=== PATIENT | female | born 1970 | race Caucasian/White ===

== ENCOUNTER 2017-02-22 11:35 | Emergency (ER) | payer BC ==
[2017-02-22] MEDS ORDERED: Ketorolac 30 MG/ML SDV IVPUSH ONE (11:44)
[2017-02-22] MEDS ORDERED: Ondansetron 4 MG/2 ML SDV IV ONE (11:44)
[2017-02-22] MEDS ORDERED: Sodium Chloride 0.9% 1,000 ML IV ONE (11:44)
[2017-02-22 11:50] VITALS: BP 131/84
--- NOTE | 2017-02-22 11:50 | EDM.PDOC ---
ED HPI GENERAL MEDICAL PROBLEM - General Stated Complaint: [id number] MIGRAINE Time Seen by Provider: 02/22/17 11:40 Source of Information: Reports: Patient History Limitations: Reports: No Limitations - History of Present Illness INITIAL COMMENTS - FREE TEXT/NARRATIVE: This 46 yo female patient reports to the ED with a migraine headache. The patient reports her pain is in the front of her head and feels like "someone is sticking their hands in behind my eyes." The patient reports she normally takes Topamax daily and has also taken Maxalt with no changes to her symptoms. The patient reports she is also feeling a little nauseated today. The patient reports she does have a history of migraine headaches, but she normally "just suffers them out." Onset: Today Duration: Constant, Getting Worse Location: Reports: Head (frontal) Quality: Reports: Ache, Sharp, Throbbing Severity: Severe Improves with: Reports: None Worsens with: Reports: None Associated Symptoms: Reports: Headaches Treatments MAP MAKER: Reports: Other Medication(s) Right Head Pain Score (Numeric/FACES): 3 - Related Data Allergies Allergy/AdvReac Type Severity Reaction Status Date / Time ear medication Allergy Swelling Uncoded 08/18/16 14:04 Home Meds: Home Meds Cholecalciferol (Vitamin D3) [Vitamin D3] 400 units PO DAILY 08/18/16 [History] Cyanocobalamin (Vitamin B-12) [Vitamin B12] 2,500 mcg PO DAILY 08/18/16 [History ] Fish Oil/Cornelia-3 Fatty Acids [Fish Oil 1,000 MG] 1 cap PO DAILY 08/18/16 [ History] Lydia Root 550 mg PO DAILY 08/18/16 [History] Levothyroxine Sodium [Synthroid] 137 mcg PO DAILY 08/18/16 [History] Magnesium 250 mg PO DAILY 08/18/16 [History] Ranitidine [Zantac] 150 mg PO BEDTIME 08/18/16 [History] Rizatriptan Benzoate [Rizatriptan] 5 mg PO ASDIRECTED PRN 08/18/16 [History] Topiramate [Topamax] 100 mg PO DAILY 08/18/16 [History] Venlafaxine HCl [Venlafaxine ER] 150 mg PO ASDIRECTED PRN 08/18/16 [History] Past Medical History HEENT History: Reports: Impaired Vision Other HEENT History: wears glasses Cardiovascular History: Reports: None Respiratory History: Reports: None Gastrointestinal History: Reports: GERD Genitourinary History: Reports: None 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: Reports: None Musculoskeletal History: Reports: None Neurological History: Reports: Migraines, Other (See Below) Other Neuro History: false brain tumor Psychiatric History: Reports: None Endocrine/Metabolic History: Reports: Obesity/BMI 30+ Hematologic History: Reports: None Immunologic History: Reports: None Oncologic (Cancer) History: Reports: None Dermatologic History: Reports: None - Infectious Disease History Infectious Disease History: Reports: Chicken Pox - Past Surgical History Head Surgeries/Procedures: Reports: None GI Surgical History: Reports: Cholecystectomy Social & Family History - Family History Family Medical History: Noncontributory - Tobacco Use Smoking Status *Q: Current Every Day Smoker Years of Tobacco use: 33 Packs/Tins Daily: 1 Second Hand Smoke Exposure: No - Caffeine Use Caffeine Use: Reports: Coffee, Soda - Recreational Drug Use Recreational Drug Use: No - Living Situation & Occupation Living situation: Reports: , with Family Occupation: Employed ED ROS GENERAL - Review of Systems Review Of Systems: ROS reveals no pertinent complaints other than HPI. - Physical Exam Exam: See Below Exam Limited By: No Limitations General Appearance: Alert, WD/WN, Moderate Distress, Obese Eye Exam: Bilateral Eye: EOMI, Normal Inspection, PERRL Ears: Normal External Exam, Normal Canal, Hearing Grossly Normal, Normal TMs Nose: Normal Inspection, Normal Mucosa, No Blood Throat/Mouth: Normal Inspection, Normal Lips, Normal Teeth, Normal Gums, Normal Oropharynx, Normal Voice, No Airway Compromise Head Exam: Atraumatic, Normocephalic Neck: Normal Inspection, Supple, Non-Tender, Full Range of Motion Respiratory/Chest: No Respiratory Distress, Lungs Clear, Normal Breath Sounds, No Accessory Muscle Use, Chest Non-Tender Cardiovascular: Normal Peripheral Pulses, Regular Rate, Rhythm, No Edema, No Gallop, No JVD, No Murmur, No Rub GI/Abdominal: Normal Bowel Sounds, Soft, Non-Tender, No Organomegaly, No Distention, No Abnormal Bruit, No Mass, Other (obese) (Female) Exam: Deferred Rectal (Female) Exam: Deferred Neuro Exam (Abbreviated): Alert, Oriented, CN II-XII Intact, Normal Cognition, Normal Gait, No Motor/Sensory Deficits Back Exam: Normal Inspection, Full Range of Motion, NT Extremities: Normal Inspection, Normal Range of Motion, Non-Tender, No Pedal Edema, Normal Capillary Refill Psychiatric: Normal Affect, Depressed Mood Skin Exam: Warm, Dry, Intact, Normal Color, No Rash Course - Vital Signs Last Recorded V/S: Last Vital Signs Temp 36.1 C 02/22/17 11:49 Pulse 88 02/22/17 11:49 Resp 18 02/22/17 11:49 BP 131/84 02/22/17 11:49 Pulse Ox 98 02/22/17 11:49 - Orders/Labs/Meds Meds: Medications Discontinued Medications Generic Name Dose Route Start Last Admin Trade Name Freq PRN Reason Stop Dose Admin Sodium Chloride 1,000 mls @ 999 mls/hr 02/22/17 11:44 02/22/17 12:15 Normal Saline IV 02/22/17 12:44 999 mls/hr .BOLUS ONE Administration Ketorolac Tromethamine 30 mg 02/22/17 11:44 02/22/17 12:14 Toradol IVPUSH 02/22/17 11:45 30 mg ONETIME ONE Administration Ondansetron HCl 4 mg 02/22/17 11:44 02/22/17 12:14 Zofran IV 02/22/17 11:45 4 mg ONETIME ONE Administration Departure - Departure Time of Disposition: 13:19 Disposition: Home, Self-Care 01 Condition: Good Clinical Impression: Migraine - Discharge Information Instructions: Recurrent Migraine Headache, Tegn-[id number] Care Plan Goals: The patient was advised of the examination results during the visit. The patient was given a liter of IV fluid, IV Zofran and IV Toradol while in the ED. The patient was encouraged to keep her neurologist informed of her migraine as well as her treatment. If the patient has any additional symptoms or concerns , the patient should follow-up with her primary care facility or return to the emergency department.
== END 2017-02-22 13:26 | disposition home or self-care (01) ==
LOC: DL.ED 11:35
DX: G43.909 Migraine, unspecified, not intractable, without status migrainosus (principal); H54.7 Unspecified visual loss; K21.9 Gastro-esophageal reflux disease without esophagitis; E66.9 Obesity, unspecified; Z90.49 Acquired absence of other specified parts of digestive tract; F17.210 Nicotine dependence, cigarettes, uncomplicated; Z88.8 Allergy status to other drugs, medicaments and biological substances; Z79.899 Other long term (current) drug therapy
CPT/HCPCS: 96361; 96374; 96375; 99283; J1885; J2405; J7030

== ENCOUNTER 2017-04-13 15:09 | Emergency (ER) | payer BC ==
[2017-04-13 15:19] VITALS: BP 138/86
[2017-04-13] MEDS ORDERED: Ondansetron 4 MG/2 ML SDV IV ONE (15:32)
[2017-04-13] MEDS ORDERED: Ketorolac 30 MG/ML SDV IM ONE (15:32)
--- NOTE | 2017-04-13 15:36 | EDM.PDOC ---
ED HPI GENERAL MEDICAL PROBLEM - General Chief Complaint: Headache Stated Complaint: MIGRAINE, [id number] Time Seen by Provider: 04/13/17 15:30 Source of Information: Reports: Patient History Limitations: Reports: No Limitations - History of Present Illness INITIAL COMMENTS - FREE TEXT/NARRATIVE: 46 yo white female c/o headache since Monday AM. Pt. seen by her Neurologist on Monday and given prednisone. Pt. also takes Topamax BID. Pt. PMHx. Migranie Headaches and Pseudo Tumor Cerebri Onset Date: 04/11/17 Onset Time: 12:00 Duration: Day(s): Location: Reports: Head Quality: Reports: Ache Improves with: Reports: None Worsens with: Reports: None Associated Symptoms: Reports: No Other Symptoms Headache Pain Score (Numeric/FACES): 8 - Related Data Allergies Allergy/AdvReac Type Severity Reaction Status Date / Time ear medication Allergy Swelling Uncoded 04/13/17 15:14 Home Meds: Home Meds Cyanocobalamin (Vitamin B-12) [Vitamin B12] 2,500 mcg PO DAILY 08/18/16 [History ] Levothyroxine Sodium [Synthroid] 137 mcg PO DAILY 08/18/16 [History] Ranitidine [Zantac] 150 mg PO BEDTIME 08/18/16 [History] Rizatriptan Benzoate [Rizatriptan] 5 mg PO ASDIRECTED PRN 08/18/16 [History] Topiramate [Topamax] 100 mg PO DAILY 08/18/16 [History] Venlafaxine HCl [Venlafaxine ER] 150 mg PO ASDIRECTED PRN 08/18/16 [History] predniSONE [Prednisone] 10 mg PO DAILY 04/13/17 [History] Past Medical History HEENT History: Reports: Impaired Vision Other HEENT History: wears glasses Cardiovascular History: Reports: None Respiratory History: Reports: None Gastrointestinal History: Reports: GERD Genitourinary History: Reports: None 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: 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: None Musculoskeletal History: Reports: None Neurological History: Reports: Migraines, Other (See Below) Other Neuro History: false brain tumor Psychiatric History: Reports: None Endocrine/Metabolic History: Reports: Obesity/BMI 30+ Hematologic History: Reports: None Immunologic History: Reports: None Oncologic (Cancer) History: Reports: None Dermatologic History: Reports: None - Infectious Disease History Infectious Disease History: Reports: Chicken Pox - Past Surgical History Head Surgeries/Procedures: Reports: None GI Surgical History: Reports: Cholecystectomy Social & Family History - Family History Family Medical History: Noncontributory - Tobacco Use Smoking Status *Q: Current Every Day Smoker Years of Tobacco use: 35 Packs/Tins Daily: 1 Used Tobacco, but Quit: No Second Hand Smoke Exposure: No - Caffeine Use Caffeine Use: Reports: Coffee, Soda Other Caffeine Use: 2 cups of coffee in morning, 2 diet dew throughout the day - Recreational Drug Use Recreational Drug Use: No - Living Situation & Occupation Living situation: Reports: , with Family Occupation: Employed ED ROS GENERAL - Review of Systems Review Of Systems: See Below Constitutional: Reports: No Symptoms HEENT: Reports: No Symptoms Respiratory: Reports: No Symptoms Cardiovascular: Reports: No Symptoms Endocrine: Reports: No Symptoms GI/Abdominal: Reports: No Symptoms : Reports: No Symptoms Musculoskeletal: Reports: No Symptoms Skin: Reports: No Symptoms Neurological: Reports: Headache Psychiatric: Reports: No Symptoms Hematologic/Lymphatic: Reports: No Symptoms Immunologic: Reports: No Symptoms - Physical Exam Exam: See Below Exam Limited By: No Limitations General Appearance: Alert, No Apparent Distress, Obese Eye Exam: Bilateral Eye: EOMI, PERRL Ears: Normal External Exam Nose: Normal Inspection Throat/Mouth: Normal Inspection Head Exam: Atraumatic Neck: Normal Inspection Respiratory/Chest: No Respiratory Distress Cardiovascular: Normal Peripheral Pulses, Regular Rate, Rhythm GI/Abdominal: Normal Bowel Sounds, Soft Neuro Exam (Abbreviated): Alert, Oriented, CN II-XII Intact, Normal Cognition DTR: 2+: Bicep (R), Bicep (L) Back Exam: Normal Inspection Extremities: Normal Inspection Psychiatric: Normal Affect, Normal Mood Skin Exam: Warm, Dry, Intact Course - Vital Signs Last Recorded V/S: Last Vital Signs Temp 36.4 C 04/13/17 15:17 Pulse 80 04/13/17 15:17 Resp 18 04/13/17 15:17 BP 138/86 04/13/17 15:17 Pulse Ox 96 04/13/17 15:17 - Orders/Labs/Meds Meds: Medications Discontinued Medications Generic Name Dose Route Start Last Admin Trade Name Freq PRN Reason Stop Dose Admin Ketorolac Tromethamine 60 mg 04/13/17 15:32 04/13/17 15:39 Toradol IM 04/13/17 15:33 60 mg ONETIME ONE Administration Ondansetron HCl 4 mg 04/13/17 15:32 04/13/17 15:39 Zofran IV 04/13/17 15:33 4 mg ONETIME ONE Administration Departure - Departure Time of Disposition: 15:51 Disposition: Home, Self-Care 01 Condition: Fair Clinical Impression: Headache Qualifiers: Headache type: other headache syndrome Qualified Code(s): G44.89 - Other headache syndrome - Discharge Information Instructions: Recurrent Migraine Headache, [id number] Forms: ED Department Discharge Additional Instructions: Rest Stop All Cigarette smoking TAke your prescribed medications as directed only F/U w/ your Neurologist for further evaluation and treatment
== END 2017-04-13 15:56 | disposition home or self-care (01) ==
LOC: DL.ED 15:09
DX: G44.89 Other headache syndrome (principal); K21.9 Gastro-esophageal reflux disease without esophagitis; E66.9 Obesity, unspecified; F17.210 Nicotine dependence, cigarettes, uncomplicated; Z79.899 Other long term (current) drug therapy; Z90.49 Acquired absence of other specified parts of digestive tract; Z68.42 Body mass index [BMI] 45.0-49.9, adult
CPT/HCPCS: 96372; 99283; J1885; J2405

== ENCOUNTER 2017-11-28 10:50 | Emergency (ER) | payer SELFPAY ==
[2017-11-28] MEDS ORDERED: Sodium Chloride 0.9% 10 ML Syringe FLUSH PRN (11:10)
[2017-11-28] MEDS ORDERED: Sodium Chloride 0.9% 1,000 ML IV ONE (11:10)
--- NOTE | 2017-11-28 11:16 | EDM.PDOC ---
ED HPI GENERAL MEDICAL PROBLEM - General Chief Complaint: Abdominal Pain Stated Complaint: SENT FROM DR PEPPER Time Seen by Provider: 11/28/17 11:08 Source of Information: Reports: Patient, Provider (Dr. Pepper), RN, RN Notes Reviewed History Limitations: Reports: No Limitations - History of Present Illness INITIAL COMMENTS - FREE TEXT/NARRATIVE: Pt presents to the ER from [facility], Dr. Pepper, with c/o RLQ pain. Patient states this pain began about 2200 last evening. She states she has had some nausea but no vomiting. Denies fever or chills, diarrhea, chest pains, or SOB. Patient states if she lies still, the pain is about 3/10, but with movement or palpation to the abdomen the pain is 10/10. Patient states she has had her gallbladder removed but still has her appendix. Patient states she has hx of migraines and hypothyroidism. Pt is also more comfortable with her right leg bent up toward the abdomen. Onset: Sudden Onset Date: 11/27/17 Onset Time: 22:00 Duration: Intermittent Location: Reports: Abdomen Quality: Reports: Stabbing Severity: Moderate Improves with: Reports: None Worsens with: Reports: None Associated Symptoms: Reports: Nausea/Vomiting Right Lower Abdominal Pain Score (Numeric/FACES): 4 - Related Data Allergies Allergy/AdvReac Type Severity Reaction Status Date / Time ear medication Allergy Swelling Uncoded 11/28/17 11:23 Home Meds: Home Meds Cyanocobalamin (Vitamin B-12) [Vitamin B12] 2,500 mcg PO DAILY 08/18/16 [History ] Levothyroxine Sodium [Synthroid] 137 mcg PO DAILY 08/18/16 [History] Ranitidine [Zantac] 150 mg PO BEDTIME 08/18/16 [History] Rizatriptan Benzoate [Rizatriptan] 5 mg PO ASDIRECTED PRN 08/18/16 [History] Topiramate [Topamax] 100 mg PO DAILY 08/18/16 [History] Venlafaxine HCl [Venlafaxine ER] 150 mg PO ASDIRECTED PRN 08/18/16 [History] predniSONE [Prednisone] 10 mg PO DAILY 04/13/17 [History] Past Medical History HEENT History: Reports: Impaired Vision Other HEENT History: wears glasses Cardiovascular History: Reports: None Respiratory History: Reports: None Gastrointestinal History: Reports: GERD Genitourinary History: Reports: None 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: None Musculoskeletal History: Reports: None Neurological History: Reports: Migraines, Other (See Below) Other Neuro History: false brain tumor Psychiatric History: Reports: None Endocrine/Metabolic History: Reports: Obesity/BMI 30+ Hematologic History: Reports: None Immunologic History: Reports: None Oncologic (Cancer) History: Reports: None Dermatologic History: Reports: None - Infectious Disease History Infectious Disease History: Reports: Chicken Pox - Past Surgical History Head Surgeries/Procedures: Reports: None GI Surgical History: Reports: Cholecystectomy Social & Family History - Family History Family Medical History: Noncontributory - Caffeine Use Caffeine Use: Reports: Coffee, Soda Other Caffeine Use: 2 cups of coffee in morning, 2 diet dew throughout the day - Living Situation & Occupation Living situation: Reports: , with Family Occupation: Employed ED ROS GENERAL - Review of Systems Review Of Systems: ROS reveals no pertinent complaints other than HPI. ED EXAM, GI/ABD - Physical Exam Exam: See Below Exam Limited By: No Limitations General Appearance: Alert, WD/WN, Mild Distress Eyes: Bilateral: Normal Appearance, EOMI Ears: Normal External Exam, Hearing Grossly Normal Nose: Normal Inspection Throat/Mouth: Normal Inspection, Normal Voice, No Airway Compromise Head: Atraumatic, Normocephalic Neck: Normal Inspection, Supple, Non-Tender, Full Range of Motion Respiratory/Chest: No Respiratory Distress, Lungs Clear, Normal Breath Sounds, No Accessory Muscle Use, Chest Non-Tender Cardiovascular: Normal Peripheral Pulses, Regular Rate, Rhythm, No Edema, No Gallop, No JVD, No Murmur, No Rub GI/Abdominal Exam: Normal Bowel Sounds, Soft, Guarding, Tender (RUQ, RLQ) (Female) Exam: Deferred Rectal (Female) Exam: Deferred Back Exam: Normal Inspection, Full Range of Motion Extremities: Normal Inspection, Normal Range of Motion, Non-Tender, Normal Capillary Refill, No Pedal Edema Neurological: Alert, Oriented, CN II-XII Intact, Normal Cognition, Normal Gait, Normal Reflexes, No Motor/Sensory Deficits Psychiatric: Normal Affect, Normal Mood Skin Exam: Warm, Dry, Intact, Normal Color, No Rash Lymphatic: No Adenopathy Course - Vital Signs Last Recorded V/S: Last Vital Signs Temp 98.5 F 11/28/17 11:06 Pulse 81 11/28/17 11:06 Resp 16 11/28/17 11:06 BP 140/79 11/28/17 11:06 Pulse Ox 97 11/28/17 11:06 - Orders/Labs/Meds Orders: Active Orders 24 hr Category Date Time Status Peripheral IV Care [RC] . DIRECTED Care 11/28/17 11:10 Active DRUG SCREEN URINE BIORAD [URCHEM] Stat Lab 11/28/17 11:34 Ordered HCG QUALITATIVE,URINE [URCHEM] Stat Lab 11/28/17 11:34 Ordered UA W/MICROSCOPIC [URIN] Stat Lab 11/28/17 11:34 Ordered Sodium Chloride 0.9% [Saline Flush] Med 11/28/17 11:10 Active 10 ml FLUSH ASDIRECTED PRN Peripheral IV Insertion Adult [OM.PC] Stat Oth 11/28/17 11:10 Ordered Medication Orders Sodium Chloride (Saline Flush) 10 ml FLUSH ASDIRECTED PRN PRN Reason: Keep Vein Open Last Admin: 11/28/17 11:58 Dose: 10 ml Labs: Laboratory Tests 11/28/17 11/28/17 11/28/17 Range/Units 11:24 11:24 11:34 WBC 13.5 H (5.0-10.0) 10^3/uL RBC 4.20 (4.2-5.4) 10^6/uL Hgb 13.0 (12.0-16.0) g/dL Hct 40.0 (37.0-47.0) % MCV 95.2 (80-100) fL MCH 31.0 (27.0-34.0) pg MCHC 32.5 L (33.0-35.0) g/dL Plt Count 185 (150-450) 10^3/uL Neut % (Auto) 88.9 H (42.2-75.2) % Lymph % (Auto) 5.7 L (20.5-50.1) % [place] % (Auto) 5.2 (2-8) % Eos % (Auto) 0.2 L (1.0-3.0) % Baso % (Auto) 0.0 (0.0-1.0) % Sodium 133 L (135-145) mmol/L Potassium 3.5 L (3.6-5.0) mmol/L Chloride 103 (101-111) mmol/L Carbon Dioxide 20.0 L (21.0-31.0) mmol/L Anion Gap 13.5 BUN 8 (7-18) mg/dL Creatinine 0.9 (0.6-1.3) mg/dL Est Cr Clr Drug Dosing 73.53 mL/min Estimated GFR (MDRD) > 60 BUN/Creatinine Ratio 8.88 Glucose 100 (74-105) mg/dL Calcium 8.8 (8.4-10.2) mg/dl Total Bilirubin 0.3 (0.2-1.0) mg/dL AST 24 (10-42) IU/L ALT 19 (10-60) IU/L Alkaline Phosphatase 88 (42-121) IU/L Total Protein 7.5 (6.7-8.2) g/dl Albumin 3.7 (3.2-5.5) g/dl Globulin 3.8 Albumin/Globulin Ratio 0.97 Urine Color Yellow (YELLOW) Urine Appearance Clear (CLEAR) Urine pH 6.0 (5.0-9.0) Ur Specific [place] <= 1.005 (1.005-1.030) Urine Protein Negative (NEGATIVE) Urine Glucose (UA) Negative (NEGATIVE) Urine Ketones Negative (NEGATIVE) Urine Occult Blood Negative (NEGATIVE) Urine Nitrite Negative (NEGATIVE) Urine Bilirubin Negative (NEGATIVE) Urine Urobilinogen 0.2 (0.2-1.0) mg/dL Ur Leukocyte Esterase Negative (NEGATIVE) Urine RBC 0-5 /HPF Urine WBC 0-5 (0-5/HPF) /HPF Ur Epithelial Cells Moderate H /HPF Urine Bacteria Rare (0-FEW/HPF) /HPF Urine HCG, Qual Urine Opiates Screen (NEGATIVE) Ur Oxycodone Screen (NEGATIVE) Urine Methadone Screen (NEGATIVE) Ur Barbiturates Screen (NEGATIVE) U Tricyclic Antidepress (NEGATIVE) Ur Phencyclidine Scrn (NEGATIVE) Ur Amphetamine Screen (NEGATIVE) U Methamphetamines Scrn (NEGATIVE) Urine MDMA Screen (NEGATIVE) U Benzodiazepines Scrn (NEGATIVE) Urine Cocaine Screen (NEGATIVE) U Marijuana (THC) Screen (NEGATIVE) 11/28/17 11/28/17 Range/Units 11:34 11:34 WBC (5.0-10.0) 10^3/uL RBC (4.2-5.4) 10^6/uL Hgb (12.0-16.0) g/dL Hct (37.0-47.0) % MCV (80-100) fL MCH (27.0-34.0) pg MCHC (33.0-35.0) g/dL Plt Count (150-450) 10^3/uL Neut % (Auto) (42.2-75.2) % Lymph % (Auto) (20.5-50.1) % [place] % (Auto) (2-8) % Eos % (Auto) (1.0-3.0) % Baso % (Auto) (0.0-1.0) % Sodium (135-145) mmol/L Potassium (3.6-5.0) mmol/L Chloride (101-111) mmol/L Carbon Dioxide (21.0-31.0) mmol/L Anion Gap BUN (7-18) mg/dL Creatinine (0.6-1.3) mg/dL Est Cr Clr Drug Dosing mL/min Estimated GFR (MDRD) BUN/Creatinine Ratio Glucose (74-105) mg/dL Calcium (8.4-10.2) mg/dl Total Bilirubin (0.2-1.0) mg/dL AST (10-42) IU/L ALT (10-60) IU/L Alkaline Phosphatase (42-121) IU/L Total Protein (6.7-8.2) g/dl Albumin (3.2-5.5) g/dl Globulin Albumin/Globulin Ratio Urine Color (YELLOW) Urine Appearance (CLEAR) Urine pH (5.0-9.0) Ur Specific [place] (1.005-1.030) Urine Protein (NEGATIVE) Urine Glucose (UA) (NEGATIVE) Urine Ketones (NEGATIVE) Urine Occult Blood (NEGATIVE) Urine Nitrite (NEGATIVE) Urine Bilirubin (NEGATIVE) Urine Urobilinogen (0.2-1.0) mg/dL Ur Leukocyte Esterase (NEGATIVE) Urine RBC /HPF Urine WBC (0-5/HPF) /HPF Ur Epithelial Cells /HPF Urine Bacteria (0-FEW/HPF) /HPF Urine HCG, Qual Negative Urine Opiates Screen Negative (NEGATIVE) Ur Oxycodone Screen Negative (NEGATIVE) Urine Methadone Screen Negative (NEGATIVE) Ur Barbiturates Screen Negative (NEGATIVE) U Tricyclic Antidepress Negative (NEGATIVE) Ur Phencyclidine Scrn Negative (NEGATIVE) Ur Amphetamine Screen Negative (NEGATIVE) U Methamphetamines Scrn Negative (NEGATIVE) Urine MDMA Screen Negative (NEGATIVE) U Benzodiazepines Scrn Negative (NEGATIVE) Urine Cocaine Screen Negative (NEGATIVE) U Marijuana (THC) Screen Negative (NEGATIVE) Meds: Medications Generic Name Dose Route Start Last Admin Trade Name Freq PRN Reason Stop Dose Admin Sodium Chloride 10 ml 11/28/17 11:10 11/28/17 11:58 Saline Flush FLUSH 10 ml ASDIRECTED PRN Administration Keep Vein Open Discontinued Medications Generic Name Dose Route Start Last Admin Trade Name Freq PRN Reason Stop Dose Admin Fentanyl 50 mcg 11/28/17 12:54 11/28/17 13:09 Sublimaze IVPUSH 11/28/17 12:55 50 mcg ONETIME ONE Administration Sodium Chloride 1,000 mls @ 999 mls/hr 11/28/17 11:10 11/28/17 11:55 Normal Saline IV 11/28/17 12:10 999 mls/hr .BOLUS ONE Administration Iopamidol 100 ml 11/28/17 12:06 11/28/17 12:32 Isovue-300 (61%) IVPUSH 11/28/17 12:07 100 ml ONETIME ONE Administration - Radiology Interpretation Free Text/Narrative:: Abdomen/Pelvis CT with contrast: Edematous retrocecal appendix located RLQ is 11mm in diameter and surrounded with inflammatory "dirty"peritoneal fat that extends over to the ipsilateral psoas muscle. No abscess. No calcified appendicolith. See Rad report - Re-Assessments/Exams Free Text/Narrative Re-Assessment/Exam: 11/28/17 13:12 Patient is very determined to have her family drive her to [facility] for surgery. She is refusing to take an ambulance as she states she cannot afford it. Patient was informed that there is high risk of perforation of the appendix, peritonitis, sepsis, etc. and that I would much prefer an ambulance take her. She states understanding and declines ambulance transport. Patient states she understands risks of this. Dr. Gannon, [facility] ER accepted the patient and was informed of the patients persistence to be driven by family. Departure - Departure Time of Disposition: 12:54 Disposition: DC/Tfer to Acute Hospital 02 Condition: Serious Clinical Impression: Appendicitis Qualifiers: Appendicitis type: acute appendicitis Acute appendicitis type: unspecified acute appendicitis type Qualified Code(s): K35.80 - Unspecified acute appendicitis - Discharge Information Forms: ED Department Discharge, Interfacility Transfer EMTBRITTANI - My Orders Last 24 Hours: My Active Orders 11/28/17 11:10 Peripheral IV Care [RC] . DIRECTED Sodium Chloride 0.9% [Saline Flush] 10 ml FLUSH ASDIRECTED PRN Peripheral IV Insertion Adult [OM.PC] Stat 11/28/17 11:34 DRUG SCREEN URINE BIORAD [URCHEM] Stat HCG QUALITATIVE,URINE [URCHEM] Stat UA W/MICROSCOPIC [URIN] Stat - Assessment/Plan Last 24 Hours: My Active Orders 11/28/17 11:10 Peripheral IV Care [RC] . DIRECTED Sodium Chloride 0.9% [Saline Flush] 10 ml FLUSH ASDIRECTED PRN Peripheral IV Insertion Adult [OM.PC] Stat 11/28/17 11:34 DRUG SCREEN URINE BIORAD [URCHEM] Stat HCG QUALITATIVE,URINE [URCHEM] Stat UA W/MICROSCOPIC [URIN] Stat
[2017-11-28 11:23] VITALS: BP 140/79
[2017-11-28 11:51] LABS: CHLORIDE,CL 103 mmol/L (101-111); SODIUM,NA 133 mmol/L (135-145)
[2017-11-28] MEDS ORDERED: Iopamidol 612 MG/ML 100 ML Bottle IVPUSH ONE (12:06)
--- NOTE | 2017-11-28 12:48 | CT ---
History: 47-year-old 328 pound female smoker with abdominal pain and abnormally WBC (13,500). Cholecy stectomy. Scan technique: Volume acquisition of data emergency CT scan abdomen and pelvis obtained without oral contrast but during intravenous infusion 100 cc nonionic Isovue contrast (2 cc/s via injector) patie nt was lying supine on the Siemens multi slice scanner [facility]. All data archived in the PACS system for storage, reformatting and study. Interpretation: Acute appendicitis. 1. Edematous retrocecal appendix located RLQ is 11 mm in diameter and surrounded with inflammatory "d irty" peritoneal fat that extends over to the ipsilateral psoas muscle. No abscess. No calcified appe ndicolith. 2. Surgically absent gallbladder. Unenhanced liver, stomach, spleen, pancreas, adrenal glands and kid neys unremarkable. 3. Normal caliber aortoiliac vessels. Normal cardiac silhouette. Lung bases clear. 4. No pelvic or abdominal mass lesion, retroperitoneal lymphadenopathy, signs of bowel obstruction, a scites or free air. 5. Hypertrophic marginal spondylosis at the thoracolumbar juncture. No sign of vertebral body fractur e or dislocation.
[2017-11-28] MEDS ORDERED: fentaNYL 100 MCG/2 ML SDV IVPUSH ONE (12:54)
== END 2017-11-28 13:10 ==
LOC: DL.ED 10:50
DX: K35.80 Unspecified acute appendicitis (principal); K21.9 Gastro-esophageal reflux disease without esophagitis; Z79.899 Other long term (current) drug therapy; Z88.8 Allergy status to other drugs, medicaments and biological substances
CPT/HCPCS: 36415; 74177; 80053; 80305; 81001; 81025; 85025; 96361; 96374; 99285; J3010; J7030; J7050; Q9967; 99284

== ENCOUNTER 2018-09-14 17:22 | Emergency (ER) | payer OTHER ==
[2018-09-14 17:34] VITALS: BP 144/86
--- NOTE | 2018-09-14 17:46 | EDM.PDOC ---
ED HPI GENERAL MEDICAL PROBLEM - General Chief Complaint: Lower Extremity Injury/Pain Stated Complaint: FELL AT WORK Time Seen by Provider: 09/14/18 17:35 Source of Information: Reports: Patient, RN, RN Notes Reviewed History Limitations: Reports: No Limitations - History of Present Illness INITIAL COMMENTS - FREE TEXT/NARRATIVE: Patient presents to ER with complaint that she fell at work. Patient states her foot caught on a rubber mat and she tripped. Patient states occurred about 1630. Patient states she landed with all her weight on right knee on cement. She has been able to bear weight on it, but has significant pain. Rates pain . Onset: Today Location: Reports: Lower Extremity, Right Quality: Reports: Ache Severity: Severe Improves with: Reports: None Worsens with: Reports: None Associated Symptoms: Reports: No Other Symptoms Right Knee Pain Score (Numeric/FACES): 8 - Related Data Allergies Allergy/AdvReac Type Severity Reaction Status Date / Time ear medication Allergy Swelling Uncoded 09/14/18 17:28 Home Meds: Home Meds Levothyroxine Sodium [Synthroid] 137 mcg PO DAILY 08/18/16 [History] Ranitidine [Zantac] 150 mg PO BEDTIME 08/18/16 [History] Rizatriptan Benzoate [Rizatriptan] 5 mg PO ASDIRECTED PRN 08/18/16 [History] Topiramate [Topamax] 100 mg PO DAILY 08/18/16 [History] Venlafaxine HCl [Venlafaxine ER] 150 mg PO ASDIRECTED PRN 08/18/16 [History] Gabapentin [Neurontin] 300 mg PO TID 09/14/18 [History] Past Medical History HEENT History: Reports: Impaired Vision Other HEENT History: wears glasses Cardiovascular History: Reports: None Respiratory History: Reports: None Gastrointestinal History: Reports: GERD Genitourinary History: Reports: None 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: 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 Musculoskeletal History: Reports: None Neurological History: Reports: Migraines, Other (See Below) Other Neuro History: false brain tumor Psychiatric History: Reports: None Endocrine/Metabolic History: Reports: Obesity/BMI 30+ Hematologic History: Reports: None Immunologic History: Reports: None Oncologic (Cancer) History: Reports: None Dermatologic History: Reports: None - Infectious Disease History Infectious Disease History: Reports: Chicken Pox - Past Surgical History Head Surgeries/Procedures: Reports: None GI Surgical History: Reports: Cholecystectomy Social & Family History - Family History Family Medical History: Noncontributory - Tobacco Use Smoking Status *Q: Current Every Day Smoker Years of Tobacco use: 35 Packs/Tins Daily: 1 Second Hand Smoke Exposure: Yes - Caffeine Use Caffeine Use: Reports: Coffee, Soda Other Caffeine Use: 2 cups of coffee in morning, 2 diet dew throughout the day - Recreational Drug Use Recreational Drug Use: No - Living Situation & Occupation Living situation: Reports: , with Family Occupation: Employed Review of Systems - Review of Systems Review Of Systems: ROS reveals no pertinent complaints other than HPI. ED EXAM, GENERAL - Physical Exam Exam: See Below Exam Limited By: No Limitations General Appearance: Alert, WD/WN, No Apparent Distress Eye Exam: Bilateral Eye: EOMI, Normal Inspection, PERRL Ears: Normal External Exam, Normal Canal, Hearing Grossly Normal, Normal TMs Nose: Normal Inspection, Normal Mucosa, No Blood Throat/Mouth: Normal Inspection, Normal Lips, Normal Teeth, Normal Gums, Normal Oropharynx, Normal Voice, No Airway Compromise Head: Atraumatic, Normocephalic Neck: Normal Inspection, Supple, Non-Tender, Full Range of Motion Respiratory/Chest: No Respiratory Distress, Lungs Clear, Normal Breath Sounds, No Accessory Muscle Use, Chest Non-Tender Cardiovascular: Normal Peripheral Pulses, Regular Rate, Rhythm, No Edema, No Gallop, No JVD, No Murmur, No Rub GI/Abdominal: Normal Bowel Sounds, Soft, Non-Tender, No Organomegaly, No Distention, No Abnormal Bruit, No Mass (Female) Exam: Deferred Rectal (Female) Exam: Deferred Back Exam: Normal Inspection, Full Range of Motion, NT Extremities: Other (right knee has decreased range of motion. Erythema on right knee cap. ) Neurological: Alert, Oriented, CN II-XII Intact, Normal Cognition, Normal Gait, Normal Reflexes, No Motor/Sensory Deficits Psychiatric: Normal Affect, Normal Mood Lymphatic: No Adenopathy Course - Vital Signs Last Recorded V/S: Last Vital Signs Temp 96.6 F 09/14/18 17:25 Pulse 82 09/14/18 17:25 Resp 18 09/14/18 17:25 BP 144/86 H 09/14/18 17:34 Pulse Ox 99 09/14/18 17:25 - Orders/Labs/Meds Orders: Active Orders 24 hr Category Date Time Status Knee 3V Rt [CR] Urgent Exams 09/14/18 17:35 Taken - Radiology Interpretation Free Text/Narrative:: Right knee xray: FINDINGS: Bones/joints: There is no evidence of acute fracture. There is no evidence of joint malalignment or dislocation. Soft tissues: Mild soft tissue swelling is present. IMPRESSION: 1. There is no evidence of acute fracture. 2. Mild soft tissue swelling is present. Thank you for allowing us to participate in the care of your patient. Dictated and Authenticated by: Sylvester Velez DO 09/14/2018 6:12 PM Central Time ([place] & [place]) See rad report Departure - Departure Time of Disposition: 18:23 Disposition: Home, Self-Care 01 Condition: Fair Clinical Impression: Sprain of knee Right knee pain Qualifiers: Chronicity: acute Qualified Code(s): M25.561 - Pain in right knee - Discharge Information *PRESCRIPTION DRUG MONITORING PROGRAM REVIEWED*: No *COPY OF PRESCRIPTION DRUG MONITORING REPORT IN PATIENT IDA: No Instructions: Crutch Use, Adult, [id number], Knee Sprain, Adult, [id number] , Elastic Bandage and RICE, How to Use a Knee Immobilizer, [id number], Knee Pain, Adult, [id number] Forms: ED Department Discharge Additional Instructions: May use Tylenol and/or Ibuprofen as directed for pain Rest, Ice, Elevate the leg as much as possible Keep knee immobilizer on as long as up and about May take it off when you sleep Call Monday to make an appointment to follow up with primary care provider for referral for MRI - My Orders Last 24 Hours: My Active Orders 09/14/18 17:35 Knee 3V Rt [CR] Urgent - Assessment/Plan Last 24 Hours: My Active Orders 09/14/18 17:35 Knee 3V Rt [CR] Urgent
== END 2018-09-14 18:44 | disposition home or self-care (01) ==
LOC: DL.ED 17:22
DX: S83.91XA Sprain of unspecified site of right knee, initial encounter (principal); E66.9 Obesity, unspecified; F17.210 Nicotine dependence, cigarettes, uncomplicated; Z79.899 Other long term (current) drug therapy; Z90.49 Acquired absence of other specified parts of digestive tract; W01.0XXA Fall on same level from slipping, tripping and stumbling without subsequent striking against object, initial encounter; Y99.0 Civilian activity done for income or pay
CPT/HCPCS: 73562-RT; 99282

== ENCOUNTER 2019-05-05 16:48 | Emergency (ER) | payer OTHER ==
[2019-05-05 17:04] VITALS: BP 135/94; PULSE 113
--- NOTE | 2019-05-05 17:33 | EDM.PDOC ---
ED HPI GENERAL MEDICAL PROBLEM - General Chief Complaint: General Stated Complaint: POSSIBLE FLU Time Seen by Provider: 05/05/19 17:33 Source of Information: Reports: Patient, Family, RN, RN Notes Reviewed History Limitations: Reports: No Limitations - History of Present Illness INITIAL COMMENTS - FREE TEXT/NARRATIVE: patient presents to ER with complaint of sinus congestion, chest congestion, nausea and vomiting, diarrhea, cough with production, fever, and chills. Patient only also complains of generalized body aches. Patient states symptoms began . States she has been using large amounts of Tylenol for pain. patient drinking a can of Coke while in the room. Person with her requested 3 times that patient be medicated for pain. Onset: Gradual Generalized Pain Score (Numeric/FACES): 8 - Related Data Allergies Allergy/AdvReac Type Severity Reaction Status Date / Time ear medication Allergy Swelling Uncoded 05/05/19 17:04 Home Meds: Home Meds Levothyroxine Sodium [Synthroid] 137 mcg PO DAILY 08/18/16 [History] Ranitidine [Zantac] 150 mg PO DAILY 08/18/16 [History] Rizatriptan Benzoate [Rizatriptan] 5 mg PO ASDIRECTED PRN 08/18/16 [History] Topiramate [Topamax] 100 mg PO DAILY 08/18/16 [History] Venlafaxine HCl [Venlafaxine ER] 150 mg PO DAILY PRN 08/18/16 [History] Gabapentin [Neurontin] 300 mg PO DAILY 09/14/18 [History] Acetaminophen [Tylenol Extra Strength] 1,500 mg PO ASDIRECTED PRN 05/05/19 [ History] Past Medical History HEENT History: Reports: Impaired Vision Other HEENT History: wears glasses Cardiovascular History: Reports: None Respiratory History: Reports: None Gastrointestinal History: Reports: GERD Genitourinary History: Reports: None 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: None Musculoskeletal History: Reports: None Neurological History: Reports: Migraines, Other (See Below) Other Neuro History: false brain tumor Psychiatric History: Reports: None Endocrine/Metabolic History: Reports: Obesity/BMI 30+ Hematologic History: Reports: None Immunologic History: Reports: None Oncologic (Cancer) History: Reports: None Dermatologic History: Reports: None - Infectious Disease History Infectious Disease History: Reports: Chicken Pox - Past Surgical History Head Surgeries/Procedures: Reports: None GI Surgical History: Reports: Cholecystectomy Social & Family History - Family History Family Medical History: Noncontributory - Tobacco Use Smoking Status *Q: Current Every Day Smoker Years of Tobacco use: 30 Packs/Tins Daily: 1 Second Hand Smoke Exposure: No - Caffeine Use Caffeine Use: Reports: Coffee, Soda Other Caffeine Use: 2 cups of coffee in morning, 2 diet dew throughout the day - Recreational Drug Use Recreational Drug Use: No - Living Situation & Occupation Living situation: Reports: , with Family Occupation: Employed ED ROS GENERAL - Review of Systems Review Of Systems: ROS reveals no pertinent complaints other than HPI. ED EXAM, GENERAL - Physical Exam Exam: See Below Exam Limited By: No Limitations General Appearance: Alert, WD/WN, Mild Distress Eye Exam: Bilateral Eye: EOMI, Normal Inspection Ears: Normal External Exam, Normal Canal, Hearing Grossly Normal, Normal TMs Nose: Normal Inspection, Normal Mucosa, No Blood Throat/Mouth: Normal Inspection, Normal Lips, Normal Teeth, Normal Gums, Normal Oropharynx, Normal Voice, No Airway Compromise Head: Atraumatic, Normocephalic Neck: Normal Inspection, Supple, Non-Tender, Full Range of Motion Respiratory/Chest: No Accessory Muscle Use, Chest Non-Tender, Crackles, Rhonchi , Wheezing Cardiovascular: Normal Peripheral Pulses, Regular Rate, Rhythm, No Edema, No Gallop, No JVD, No Murmur, No Rub Peripheral Pulses: 2+: Radial (L), Radial (R) GI/Abdominal: Normal Bowel Sounds, Soft, Non-Tender (Female) Exam: Deferred Rectal (Female) Exam: Deferred Back Exam: Normal Inspection, Full Range of Motion, NT Extremities: Normal Inspection, Normal Range of Motion, Non-Tender, Normal Capillary Refill, No Pedal Edema Neurological: Alert, Oriented, CN II-XII Intact, Normal Cognition, Normal Gait, Normal Reflexes, No Motor/Sensory Deficits Psychiatric: Normal Affect, Normal Mood Skin Exam: Warm, Dry, Intact, Normal Color, No Rash Lymphatic: No Adenopathy Course - Vital Signs Last Recorded V/S: Last Vital Signs Temp 96 F 05/05/19 16:59 Pulse 113 H 05/05/19 16:59 Resp 18 05/05/19 16:59 BP 135/94 H 10/27/19 16:59 Pulse Ox 99 05/05/19 16:59 - Orders/Labs/Meds Meds: Medications Discontinued Medications Generic Name Dose Route Start Last Admin Trade Name Patricia PRN Reason Stop Dose Admin Ketorolac Tromethamine 30 mg 05/05/19 17:54 05/05/19 18:52 Toradol IM 05/05/19 17:55 30 mg ONETIME ONE Administration - Radiology Interpretation Free Text/Narrative:: Chest xray: FINDINGS: Lungs: Unremarkable. No consolidation. Pleural space: Unremarkable. No pleural effusion. No pneumothorax. Heart/Mediastinum: Unremarkable. No cardiomegaly. Bones/joints: Unremarkable. IMPRESSION: No acute findings. Thank you for allowing us to participate in the care of your patient. Dictated and Authenticated by: Rashaad Mccoy MD 05/05/2019 7:04 PM Central Time ([place] & [place]) See rad report Departure - Departure Time of Disposition: 20:10 Disposition: Eloped 07 Condition: Fair Clinical Impression: Bronchitis Headache Qualifiers: Headache type: other headache syndrome Qualified Code(s): G44.89 - Other headache syndrome Upper respiratory infection Qualifiers: URI type: unspecified viral URI Qualified Code(s): J06.9 - Acute upper respiratory infection, unspecified - Discharge Information *PRESCRIPTION DRUG MONITORING PROGRAM REVIEWED*: No *COPY OF PRESCRIPTION DRUG MONITORING REPORT IN PATIENT IDA: No Referrals: PCP,None [Primary Care Provider] - Forms: ED Department Discharge, Refusal of Care AMA
[2019-05-05] MEDS: Ketorolac 30 MG/ML SDV IM ONE (18:52)
== END 2019-05-05 20:00 | disposition left against medical advice (07) ==
LOC: DL.ED 16:48
DX: J40 Bronchitis, not specified as acute or chronic (principal); G44.89 Other headache syndrome; J06.9 Acute upper respiratory infection, unspecified; K21.9 Gastro-esophageal reflux disease without esophagitis; E66.9 Obesity, unspecified; F17.210 Nicotine dependence, cigarettes, uncomplicated; Z88.9 Allergy status to unspecified drugs, medicaments and biological substances; Z79.899 Other long term (current) drug therapy; Z68.42 Body mass index [BMI] 45.0-49.9, adult
CPT/HCPCS: 71046; 87804; 99283; J1885

== ENCOUNTER 2019-07-20 18:40 | Emergency (ER) | payer OTHER ==
[2019-07-20] MEDS ORDERED: Acetaminophen/HYDROcodone 325-10 MG Tab PO ONE (18:41)
[2019-07-20] MEDS ORDERED: Clindamycin Phosphate 900 MG in Sodium Chloride 0.9% 100 ML IV ONE (19:48)
[2019-07-20] MEDS ORDERED: Sodium Chloride 0.9% 1,000 ML IV ONE (19:48)
[2019-07-20] MEDS ORDERED: Ketorolac 30 MG/ML SDV IVPUSH ONE (19:48)
--- NOTE | 2019-07-20 19:52 | EDM.PDOC ---
ED HPI GENERAL MEDICAL PROBLEM - General Chief Complaint: Skin Complaint Stated Complaint: RIGHT FOOT, CUT THAT IS NOT HEALING AND ITS PAIN Time Seen by Provider: 07/20/19 19:49 Source of Information: Reports: Patient History Limitations: Reports: No Limitations - History of Present Illness INITIAL COMMENTS - FREE TEXT/NARRATIVE: had seroma removed and been f/u with PMD on it's progress. got worse few days ago with redness pain drainage. been Tx it with vaseline. has appt with surgeon next . Treatments ARTIST CONSULTANT: Reports: Acetaminophen Right Foot Pain Score (Numeric/FACES): 8 - Related Data Allergies Allergy/AdvReac Type Severity Reaction Status Date / Time ear medication Allergy Swelling Uncoded 07/20/19 19:37 Home Meds: Home Meds Levothyroxine Sodium [Synthroid] 137 mcg PO DAILY 08/18/16 [History] Ranitidine [Zantac] 150 mg PO DAILY 08/18/16 [History] Topiramate [Topamax] 100 mg PO DAILY 08/18/16 [History] Venlafaxine HCl [Venlafaxine ER] 150 mg PO DAILY PRN 08/18/16 [History] Gabapentin [Neurontin] 300 mg PO DAILY 09/14/18 [History] Acetaminophen [Tylenol Extra Strength] 1,000 mg PO ASDIRECTED PRN 05/05/19 [ History] Past Medical History HEENT History: Reports: Impaired Vision Other HEENT History: wears glasses Cardiovascular History: Reports: None Respiratory History: Reports: None Gastrointestinal History: Reports: GERD Genitourinary History: Reports: None 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 Dermatologic History: Reports: None, Other (See Below) Other Dermatologic History: Neuroma to Rt. foot. removed. - Infectious Disease History Infectious Disease History: Reports: Chicken Pox - Past Surgical History Head Surgeries/Procedures: Reports: None GI Surgical History: Reports: Appendectomy, Cholecystectomy Social & Family History - Family History Family Medical History: Noncontributory - Tobacco Use Smoking Status *Q: Current Every Day Smoker Years of Tobacco use: 30 Packs/Tins Daily: 1 - Caffeine Use Caffeine Use: Reports: Coffee, Soda Other Caffeine Use: 2 cups of coffee in morning, 2 diet dew throughout the day - Recreational Drug Use Recreational Drug Use: No - Living Situation & Occupation Living situation: Reports: , with Family Occupation: Employed ED ROS GENERAL - Review of Systems Review Of Systems: Comprehensive ROS is negative, except as noted in HPI. ED EXAM, SKIN/RASH Exam: See Below Exam Limited By: No Limitations General Appearance: Alert, WD/WN, Mild Distress, Other (discomfort) Ears: Hearing Grossly Normal Throat/Mouth: Normal Voice, No Airway Compromise Head: Atraumatic Neck: Non-Tender, Full Range of Motion Respiratory/Chest: No Respiratory Distress Cardiovascular: Regular Rate, Rhythm GI/Abdominal: Soft, Non-Tender Extremities: Other (dorsum right foot open sore local erythema) Neurological: Alert, Oriented, Normal Cognition, No Motor/Sensory Deficits Psychiatric: Normal Affect, Normal Mood Skin: Warm, Dry, Normal Color Location, Skin: Lower Extremity, Right Characteristics: Erythematous Associated features: Warmth, Tenderness, Inflammation, Weeping. No: Lymphangitis Lymphatic: No Adenopathy Course - Vital Signs Last Recorded V/S: Last Vital Signs Temp 35.5 C 07/20/19 19:31 Pulse 92 07/20/19 19:31 Resp 16 07/20/19 19:31 BP 137/96 H 07/20/19 19:31 Pulse Ox 99 07/20/19 19:31 - Orders/Labs/Meds Orders: Active Orders 24 hr Category Date Time Status CULTURE BLOOD [BC] Stat Lab 07/20/19 20:00 Received CULTURE WOUND [RM] Routine Lab 07/20/19 19:25 Received Sodium Chloride 0.9% [Normal Saline] 1,000 ml Med 07/20/19 19:48 Active IV .BOLUS Medication Orders Sodium Chloride (Normal Saline) 1,000 mls @ 999 mls/hr IV .BOLUS ONE Stop: 07/20/19 20:48 Last Admin: 07/20/19 20:00 Dose: 999 mls/hr Labs: Laboratory Tests 07/20/19 07/20/19 07/20/19 Range/Units 20:00 20:00 20:00 WBC 8.4 (5.0-10.0) 10^3/uL RBC 4.68 (4.2-5.4) 10^6/uL Hgb 14.4 (12.0-16.0) g/dL Hct 43.5 (37.0-47.0) % MCV 92.9 (80-100) fL MCH 30.8 (27.0-34.0) pg MCHC 33.1 (33.0-35.0) g/dL Plt Count 234 (150-450) 10^3/uL Neut % (Auto) 77.6 H (42.2-75.2) % Lymph % (Auto) 15.5 L (20.5-50.1) % [place] % (Auto) 5.9 (2-8) % Eos % (Auto) 0.9 L (1.0-3.0) % Baso % (Auto) 0.1 (0.0-1.0) % Sodium 136 (135-145) mmol/L Potassium 3.8 (3.6-5.0) mmol/L Chloride 103 (101-111) mmol/L Carbon Dioxide 24.0 (21.0-31.0) mmol/L Anion Gap 12.8 BUN 14 (7-18) mg/dL Creatinine 0.9 (0.6-1.3) mg/dL Est Cr Clr Drug Dosing 71.91 mL/min Estimated GFR (MDRD) > 60 BUN/Creatinine Ratio 15.55 Glucose 94 (74-105) mg/dL Lactic Acid 1.0 (0.5-2.0) mmol/L Calcium 8.8 (8.4-10.2) mg/dl Total Bilirubin 0.4 (0.2-1.0) mg/dL AST 18 (10-42) IU/L ALT 19 (10-60) IU/L Alkaline Phosphatase 84 (42-121) IU/L Total Protein 7.1 (6.7-8.2) g/dl Albumin 3.5 (3.2-5.5) g/dl Globulin 3.6 Albumin/Globulin Ratio 0.97 Meds: Medications Generic Name Dose Route Start Last Admin Trade Name Freq PRN Reason Stop Dose Admin Sodium Chloride 1,000 mls @ 999 mls/hr 07/20/19 19:48 07/20/19 20:00 Normal Saline IV 07/20/19 20:48 999 mls/hr .BOLUS ONE Administration Discontinued Medications Generic Name Dose Route Start Last Admin Trade Name Patricia PRN Reason Stop Dose Admin Clindamycin Phosphate 900 mg/ 106 mls @ 200 mls/hr 07/20/19 19:48 07/20/19 19 :58 Sodium Chloride IV 07/20/19 20:19 200 mls/hr ONETIME ONE Administration Ketorolac Tromethamine 30 mg 07/20/19 19:48 07/20/19 19:57 Toradol IVPUSH 07/20/19 19:49 30 mg ONETIME ONE Administration - Re-Assessments/Exams Free Text/Narrative Re-Assessment/Exam: 07/20/19 20:43 results discussed with pt who is feeling much better presently. Departure - Departure Time of Disposition: 20:43 Disposition: Home, Self-Care 01 Condition: Good Clinical Impression: Cellulitis Qualifiers: Site of cellulitis: extremity Site of cellulitis of extremity: lower extremity Laterality: right Qualified Code(s): L03.115 - Cellulitis of right lower limb - Discharge Information Instructions: Cellulitis, Adult, [id number] Forms: ED Department Discharge Additional Instructions: 1) elevate right foot as much as possible next 4 days 2) keep wound clean dry covered 3) follow up at clinic 4) recheck as needed rx given; vicodin 5/325mg bid prn x 6 clindamycin 300mg qid x 40 Sepsis Event Note - Evaluation Sepsis Screening Result: Possible Sepsis Risk - Focused Exam Vital Signs: Vital Signs Temp Pulse Resp BP Pulse Ox 07/20/19 19:31 35.5 C 92 16 137/96 H 99 Date Exam was Performed: 07/20/19 Time Exam was Performed: 20:43 - My Orders Last 24 Hours: My Active Orders 07/20/19 19:25 CULTURE WOUND [RM] Routine 07/20/19 19:48 Sodium Chloride 0.9% [Normal Saline] 1,000 ml IV .BOLUS 07/20/19 20:00 CULTURE BLOOD [BC] Stat - Assessment/Plan Last 24 Hours: My Active Orders 07/20/19 19:25 CULTURE WOUND [RM] Routine 07/20/19 19:48 Sodium Chloride 0.9% [Normal Saline] 1,000 ml IV .BOLUS 07/20/19 20:00 CULTURE BLOOD [BC] Stat
[2019-07-20 20:29] LABS: ANION GAP 12.8; CHLORIDE,CL 103 mmol/L (101-111); SODIUM,NA 136 mmol/L (135-145)
[2019-07-20] MEDS ORDERED: Acetaminophen/HYDROcodone 325-10 MG Tab ONE (21:05)
[2019-07-20 21:19] VITALS: BP 152/94; PULSE 72
== END 2019-07-20 21:15 | disposition home or self-care (01) ==
LOC: DL.ED 18:40
DX: L03.115 Cellulitis of right lower limb (principal); E03.9 Hypothyroidism, unspecified; E66.9 Obesity, unspecified; Z79.899 Other long term (current) drug therapy; F17.210 Nicotine dependence, cigarettes, uncomplicated; Z90.49 Acquired absence of other specified parts of digestive tract
CPT/HCPCS: 36415; 80053; 83605; 85025; 87040; 87070; 96361; 96365; 96375; 99283; A9270; J1885; J3490; J7030; J7050

== ENCOUNTER 2019-09-12 06:21 | Day surgery (SDC) | payer OTHER ==
[~2019-09-12 06:21] MED LIST: Dextrose 5%-0.45% NaCl 1,000 ML IV SCH; Midazolam 1 MG/ML 2 ML SDV ONE; Sodium Chloride 0.9% 10 ML Syringe FLUSH PRN; fentaNYL 100 MCG/2 ML SDV ONE
[2019-09-12] MEDS ORDERED: fentaNYL 100 MCG/2 ML SDV IV ONE ×3 (06:22→07:30)
[2019-09-12] MEDS ORDERED: Midazolam 1 MG/ML 2 ML SDV IV ONE ×3 (06:22→07:31)
--- NOTE | 2019-09-12 11:13 | OR ---
DATE: 09/12/2019 PROCEDURES: Esophagogastroduodenoscopy and multiple pinch biopsies. INSTRUMENT USED: [id number] Olympus video panendoscope. PREMEDICATIONS: No oral or topical anesthesia used. Fentanyl 100 mcg intravenous, Versed 2 mg intravenous, nasal O2 cannula. The procedure was done under pulse oximetry, BP recording, and engine monitor. INDICATION: The patient with long-standing heartburn and associated difficulties, persistent in nature, unexplained and not responsive to medical measures. Esophagogastroduodenoscopy is performed for detection of any active erosive lesions, Sherman esophagus, and/or malignancy also under consideration, H pylori status to be determined, endoscopic hemostasis therapy if needed. PROCEDURE IN DETAIL: The scope was passed with ease. Adequate visualization of the esophagus was made from proximal to distal areas. No upper esophageal lesions identified. No distal esophageal stricture. No uphill or downhill esophageal varices. No Rebecca-Phillips tear. No evidence of erosive esophagitis by Stevenson criteria. No esophageal polyp or tumor mass identified. Z-line was seen at around 39 cm distal to the oral verge, configuration consistent with grade 1 by ZAP classification. No proximal gastric varices noted. Gastric fundus examination by retroflexion showed no polypoid lesions. No gastric ulcer, malignant mass, or vascular ectasia identified. Duodenal bulb showed no ulcer. Visualized second part of the duodenum was unremarkable. Multiple pinch biopsies were taken from the gastric antrum and proximal body and sent for PyloriTek test for H pylori, and if negative in an hour, the tissue is to be sent for histopathology. No bleeding was noted from any of the visualized areas at the completion of examination. Photographs were taken of the duodenal bulb, gastric antrum, fundus, and distal esophagus. IMPRESSION: Normal study. The patient tolerated the procedure well. [facility] /[id number]
[2019-09-12 12:36] VITALS: BP 138/77; PULSE 55
== END 2019-09-12 09:43 | disposition home or self-care (01) ==
LOC: DL.ENDO 06:21
PROVIDERS: ATTEND Internal Medicine Gastroenterology
DX: K31.89 Other diseases of stomach and duodenum (principal); R12 Heartburn; E03.9 Hypothyroidism, unspecified; G47.33 Obstructive sleep apnea (adult) (pediatric); G93.2 Benign intracranial hypertension; K21.9 Gastro-esophageal reflux disease without esophagitis; E66.01 Morbid (severe) obesity due to excess calories; F17.210 Nicotine dependence, cigarettes, uncomplicated; Z98.890 Other specified postprocedural states; Z90.49 Acquired absence of other specified parts of digestive tract; Z91.041 Radiographic dye allergy status
CPT/HCPCS: 43239; 87077; J2250; J3010; J7042

== ENCOUNTER 2019-09-16 06:02 | Day surgery (SDC) | payer OTHER ==
[2019-09-16] MEDS ORDERED: fentaNYL 100 MCG/2 ML SDV IV ONE ×4 (06:03→07:06)
[2019-09-16] MEDS ORDERED: Midazolam 1 MG/ML 2 ML SDV IV ONE ×7 (06:03→07:02)
[2019-09-16] MEDS ORDERED: Midazolam 1 MG/ML 2 ML SDV ONE (06:10)
[2019-09-16] MEDS ORDERED: fentaNYL 100 MCG/2 ML SDV ONE (06:10)
[2019-09-16] MEDS ORDERED: Dextrose 5%-0.45% NaCl 1,000 ML IV SCH (06:45)
[2019-09-16 09:38] VITALS: BP 133/71; PULSE 66
--- NOTE | 2019-09-16 15:11 | OR ---
DATE: 09/16/2019 PROCEDURES: Total colonoscopy, NBI, and multiple pinch biopsies. INSTRUMENT USED: [id number] Olympus video colonoscope. PREMEDICATIONS: Fentanyl 150 mcg intravenous, Versed 4 mg intravenous, nasal O2 cannula. The procedure was done under pulse oximetry, BP recording, and block sorter. INDICATION: The patient with progressive constipation and rectal bleeding and family history of rectal cancer in immediate family member. Colonoscopic examination is done for detection of any polypoid lesions and removal, endoscopic hemostasis therapy if needed. DESCRIPTION OF PROCEDURE: Initial rectal exam was unremarkable. Rigid anoscopy showed small internal hemorrhoids without bleeding from them. The colonoscope was passed with ease up to the ileocecal area. Photographs were taken of the normal-appearing cecum, identified by landmarks of appendiceal orifice and double-bulged ileocecal folds. No bleeding was noted from any of the visualized areas at the commencement of the examination. No stricture. No vascular ectasia. No large isolated ulcerations seen. No evidence of diffuse inflammatory bowel disease in the form of friability, contact bleeding, or ulcerations. The bowel preparation was found to be adequate, Gower scale 2 in all the regions, total score 6. In the mid ascending colon,less than 1 cm sized benign-appearing submucosal soft lesion with "dimple sign" on application of biopsy forceps noted, magnification and NBI views were obtained, photographs were taken, multiple pinch biopsies were obtained and sent for histopathology. Probing the proximal sides of folds and flexures using adequate distention and clearing up the stool material, withdrawal of the scope was made. No bleeding was noted from any of the visualized areas at the completion of examination. IMPRESSION: 1. Internal hemorrhoids. 2. Benign ascending colon submucosal lesion. The patient tolerated the procedure well. [facility] /[id number]
== END 2019-09-16 09:23 | disposition home or self-care (01) ==
LOC: DL.ENDO 06:02
PROVIDERS: ATTEND Internal Medicine Gastroenterology
DX: K63.89 Other specified diseases of intestine (principal); K64.8 Other hemorrhoids; F17.210 Nicotine dependence, cigarettes, uncomplicated; E03.9 Hypothyroidism, unspecified; E66.01 Morbid (severe) obesity due to excess calories; G47.33 Obstructive sleep apnea (adult) (pediatric); I10 Essential (primary) hypertension; Z91.041 Radiographic dye allergy status; Z90.49 Acquired absence of other specified parts of digestive tract; Z98.890 Other specified postprocedural states; Z68.43 Body mass index [BMI] 50.0-59.9, adult
CPT/HCPCS: 45380; J2250; J3010; J7042

== ENCOUNTER 2019-12-09 10:50 | Emergency (ER) | payer OTHER ==
[2019-12-09] MEDS ORDERED: Aspirin 81 MG Tab.Chew PO ONE (10:59)
[2019-12-09] MEDS ORDERED: Nitroglycerin 0.4 MG Tab.SL SL PRN (10:59)
--- NOTE | 2019-12-09 11:08 | EDM.PDOC ---
ED HPI GENERAL MEDICAL PROBLEM - General Chief Complaint: Chest Pain Stated Complaint: CHEST PAINS Time Seen by Provider: 12/09/19 11:01 Source of Information: Reports: Patient, Old Records, RN, RN Notes Reviewed History Limitations: Reports: No Limitations - History of Present Illness INITIAL COMMENTS - FREE TEXT/NARRATIVE: Pt presents to ER from home by POV with c/o chest pain that began this morning at 0900HRS. Pt reports pain is intermittent, sharp at times. She rates the current pain 4/10. Pt denies taking any medication or remedy for the pain. Pt reports that this has happened in the past and she has had chest pain evaluations, but it has always turned out to be nothing to do with cardiac disease. She has been treated for GERD in the past which has relieved similar symptoms. Pt reports chest pain is to middle/R side chest area w/no radiation. Pt reports last meal last night, consisting of "fast food" including a burger. Pt denies cough, shortness of breath, eye irritation/drainage, loss of taste or smell, red tongue, rash or skin lesions, abdominal pain, N/V/D, fevers, chills, recent travel, or known exposure to confirmed or suspected Covid-19 cases. Onset: Today, Sudden Onset Time: 09:00 Duration: Constant Location: Reports: Chest, Abdomen Quality: Reports: Ache, Burning, Pressure Severity: Moderate Improves with: Reports: None Worsens with: Reports: None Associated Symptoms: Reports: No Other Symptoms Chest Pain Score (Numeric/FACES): 4 - Related Data Allergies Allergy/AdvReac Type Severity Reaction Status Date / Time ear medication Allergy Swelling Uncoded 12/09/19 10:58 Home Meds: Home Meds Levothyroxine Sodium [Synthroid] 137 mcg PO DAILY 08/18/16 [History] Venlafaxine HCl [Venlafaxine ER] 150 mg PO DAILY PRN 08/18/16 [History] Gabapentin [Neurontin] 300 mg PO DAILY 09/14/18 [History] Acetaminophen [Tylenol Extra Strength] 1,000 mg PO ASDIRECTED PRN 05/05/19 [ History] Albuterol Sulfate [Proair Hfa] 1 - 2 puff INH ASDIRECTED PRN 09/11/19 [History] Diclofenac Sodium [Voltaren 1% Gel] 1 applic TOP ASDIRECTED PRN 09/11/19 [ History] Oxybutynin Chloride [Oxybutynin Chloride ER] 10 mg PO DAILY 09/11/19 [History] Pantoprazole [ProTONIX] 40 mg PO DAILY 09/11/19 [History] Propranolol HCl [Propranolol] 60 mg PO DAILY 09/11/19 [History] Rizatriptan Benzoate [Rizatriptan] 10 mg PO ASDIRECTED PRN MDD 30 MG 09/11/19 [ History] guaiFENesin [Mucinex] 600 mg PO BID PRN 09/11/19 [History] traMADol [Ultram] 50 mg PO TID PRN MDD 400 MG 09/11/19 [History] Past Medical History HEENT History: Reports: Impaired Vision Other HEENT History: wears glasses. 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 Dermatologic History: Reports: Other (See Below) Other Dermatologic History: Neuroma to Rt. foot. removed. - Infectious Disease History Infectious Disease History: Reports: Chicken Pox, Hepatitis A - Past Surgical History Head Surgeries/Procedures: Reports: None HEENT Surgical History: Reports: None Cardiovascular Surgical History: Reports: None Respiratory Surgical History: Reports: None GI Surgical History: Reports: Appendectomy, Cholecystectomy, EGD Female Surgical History: Reports: Breast Biopsy Endocrine Surgical History: Reports: None Neurological Surgical History: Reports: None Musculoskeletal Surgical History: Reports: Other (See Below) Other Musculoskeletal Surgeries/Procedures:: RIGHT FOOT NEUROMA EXCISION Oncologic Surgical History: Reports: None Dermatological Surgical History: Reports: None Social & Family History - Family History Family Medical History: Noncontributory - Tobacco Use Smoking Status *Q: Current Every Day Smoker Tobacco Use Within Last Twelve Months: Cigarettes - Caffeine Use Caffeine Use: Reports: Coffee, Soda Other Caffeine Use: 2 cups of coffee in morning, 2 soda - Living Situation & Occupation Living situation: Reports: , with Family Occupation: Employed ED ROS GENERAL - Review of Systems Review Of Systems: Comprehensive ROS is negative, except as noted in HPI. ED EXAM, GENERAL - Physical Exam Exam: See Below Exam Limited By: No Limitations General Appearance: Alert, WD/WN, No Apparent Distress, Obese Eye Exam: Bilateral Eye: Normal Inspection Nose: Normal Inspection Throat/Mouth: Normal Inspection, Normal Lips, Normal Voice, No Airway Compromise Head: Atraumatic, Normocephalic Neck: Normal Inspection, Non-Tender, Full Range of Motion Respiratory/Chest: No Respiratory Distress, Lungs Clear, Normal Breath Sounds, No Accessory Muscle Use, Chest Non-Tender Cardiovascular: Normal Peripheral Pulses, Regular Rate, Rhythm, No Edema, No Gallop, No JVD, No Murmur, No Rub GI/Abdominal: Normal Bowel Sounds, Soft, No Organomegaly, No Distention, No Abnormal Bruit, No Mass, Tender (Mild epigastric tenderness). No: Guarding, Rigid, Rebound Back Exam: Normal Inspection Extremities: Normal Inspection, Normal Range of Motion, Non-Tender, No Pedal Edema, Normal Capillary Refill. No: Joint Swelling, Kevin's Sign, Redness Neurological: Alert, Oriented, CN II-XII Intact, Normal Cognition, Normal Gait, No Motor/Sensory Deficits Psychiatric: Normal Affect, Anxious Skin Exam: Warm, Dry, Intact, Normal Color, No Rash EKG INTERPRETATION EKG Date: 12/09/19 Time: 11:02 Rhythm: Other (SR) Rate (Beats/Min): 58 [place]: LAD-Left [place] Deviation P-Wave: Present QRS: Normal ST-T: Normal QT: Normal Comparison: No Change Course - Vital Signs Last Recorded V/S: Last Vital Signs Temp 97.5 F 12/09/19 10:53 Pulse 58 L 12/09/19 10:53 Resp 18 12/09/19 10:53 BP 152/90 H 12/09/19 10:53 Pulse Ox 98 12/09/19 10:53 - Orders/Labs/Meds Orders: Active Orders 24 hr Category Date Time Status EKG 12 Lead [EKG Documentation Completion] [RC] STAT Care 12/09/19 10:59 Active Nitroglycerin [Nitrostat] Med 12/09/19 10:59 Active 0.4 mg SL Q5M PRN Medication Orders Nitroglycerin (Nitrostat) 0.4 mg SL Q5M PRN PRN Reason: Chest Pain Labs: Laboratory Tests 12/09/19 12/09/19 12/09/19 Range/Units 11:03 11:03 11:03 WBC 7.2 (5.0-10.0) 10^3/uL RBC 4.66 (4.2-5.4) 10^6/uL Hgb 14.1 (12.0-16.0) g/dL Hct 43.0 (37.0-47.0) % MCV 92.3 (80-100) fL MCH 30.3 (27.0-34.0) pg MCHC 32.8 L (33.0-35.0) g/dL Plt Count 212 (150-450) 10^3/uL Neut % (Auto) 76.1 H (42.2-75.2) % Lymph % (Auto) 15.2 L (20.5-50.1) % Phillips % (Auto) 7.8 (2-8) % Eos % (Auto) 0.8 L (1.0-3.0) % Baso % (Auto) 0.1 (0.0-1.0) % D-Dimer, Quantitative 522 H (0-400) ng/mL Sodium 141 (136-145) mmol/L Potassium 4.8 (3.5-5.1) mmol/L Chloride 102 (98-107) mmol/L Carbon Dioxide 35 H (21-32) mmol/L Anion Gap 8.8 (7-13) mEq/L BUN 10 (7-18) mg/dL Creatinine 0.93 (0.55-1.02) mg/dL Est Cr Clr Drug Dosing 69.59 mL/min Estimated GFR (MDRD) > 60 BUN/Creatinine Ratio 10.8 (No establ ref range) Glucose 97 (74-99) mg/dL Calcium 8.4 L (8.5-10.1) mg/dL Total Bilirubin 0.3 (0.2-1.0) mg/dL AST 25 (15-37) U/L ALT 32 (14-59) U/L Alkaline Phosphatase 110 (46-116) U/L Troponin I < 0.017 (0.000-0.056) ng/mL Total Protein 7.2 (6.4-8.2) g/dL Albumin 3.0 L (3.4-5.0) g/dL Globulin 4.2 Albumin/Globulin Ratio 0.71 Amylase 38 (25-115) U/L Lipase 93 (73-393) U/L Meds: Medications Generic Name Dose Route Start Last Admin Trade Name Freq PRN Reason Stop Dose Admin Nitroglycerin 0.4 mg 12/09/19 10:59 Nitrostat SL Q5M PRN Chest Pain Discontinued Medications Generic Name Dose Route Start Last Admin Trade Name Freq PRN Reason Stop Dose Admin Aspirin 324 mg 12/09/19 10:59 12/09/19 11:06 Aspirin PO 12/09/19 11:00 324 mg ONETIME ONE Administration Famotidine 20 mg 12/09/19 12:03 Pepcid IVPUSH 12/09/19 12:04 ONETIME ONE - Radiology Interpretation Free Text/Narrative:: Chest XR: new right suprahilar density on this film not present on prior studies , recommend f/u with CT Chest with IV contrast per Rad. report. - Re-Assessments/Exams Free Text/Narrative Re-Assessment/Exam: 12/09/19 12:14 I discussed the exam, lab, and chest XR results with the pt. Pt relates her chest pain seems to be related to the fact that food gets stuck when she swallows and it has been getting worse. I informed her of the abnormal mass finding on chest XR, and offered to obtain CT scan while she is in the ER, but the pt prefers to f/u in clinic this week with Dr. Barrientos and have the CT scan as an outpt. Departure - Departure Time of Disposition: 12:16 Disposition: Home, Self-Care 01 Condition: Good Clinical Impression: Atypical chest pain, Esophageal stricture, Mass of right lung GERD (gastroesophageal reflux disease) Qualifiers: Esophagitis presence: with esophagitis Qualified Code(s): K21.0 - Gastro- esophageal reflux disease with esophagitis Instructions: Nonspecific Chest Pain, Adult, Food Choices for Gastroesophageal Reflux Disease, Adult, Esophageal Stricture, Lung Mass Forms: ED Department Discharge Additional Instructions: Take your Pantoprazole twice a day for the next 3 days, then resume once daily dosing. Follow up in clinic with Dr. Barrientos at the first available appointment this week for recheck and further evaluation of the right lung mass with a CT scan of the chest with IV contrast, and to discuss your swallowing difficulty and possible esophageal stricture. Try to quit smoking. Sepsis Event Note - Evaluation Sepsis Screening Result: No Definite Risk - Focused Exam Vital Signs: Vital Signs Temp Pulse Resp BP Pulse Ox 12/09/19 10:53 97.5 F 58 L 18 152/90 H 98 Date Exam was Performed: 12/09/19 Time Exam was Performed: 12:06 - My Orders Last 24 Hours: My Active Orders 12/09/19 10:59 EKG 12 Lead [EKG Documentation Completion] [RC] STAT Nitroglycerin [Nitrostat] 0.4 mg SL Q5M PRN - Assessment/Plan Last 24 Hours: My Active Orders 12/09/19 10:59 EKG 12 Lead [EKG Documentation Completion] [RC] STAT Nitroglycerin [Nitrostat] 0.4 mg SL Q5M PRN
[2019-12-09 11:34] LABS: ANION GAP 8.8 mEq/L (7-13); CHLORIDE,CL 102 mmol/L (98-107); SODIUM,NA 141 mmol/L (136-145)
--- NOTE | 2019-12-09 11:43 | CR ---
EXAMINATION: Chest 1V Frontal SEX: Female AGE: 49 years CLINICAL HISTORY: 49-year-old female smoker with CHEST PAIN. INTERPRETATION: No acute new cardiopulmonary abnormality since comparison PA/lateral chest films 05 May 2019 but suspicious suprahilar density on the right this high risk patient. Recommend considering CT scan chest with IV contrast. 1. Normal cardiac silhouette and pulmonary vascularity. No new signs of pulmonary vascular congestion or alveolar edema. 2. *Subtle new right suprahilar density which could reflect differences in technique but considering patient's risk factors recommend contrast-enhanced CT scan chest. 3. No other parenchymal lung mass lesion or signs of hilar/mediastinal lymphadenopathy. 4. No focal lobar infiltrate, atelectasis or collapse. 5. No pneumothorax or pneumomediastinum. Midline tracheal bronchial airway unremarkable.
[2019-12-09] MEDS ORDERED: Famotidine 20 MG/2 ML SDV IVPUSH ONE (12:03)
[2019-12-09 12:53] VITALS: BP 152/90; PULSE 58
== END 2019-12-09 12:35 | disposition home or self-care (01) ==
LOC: DL.ED 10:50
DX: K21.0 Gastro-esophageal reflux disease with esophagitis (principal); R91.8 Other nonspecific abnormal finding of lung field; K22.2 Esophageal obstruction; E03.9 Hypothyroidism, unspecified; F17.210 Nicotine dependence, cigarettes, uncomplicated; E66.9 Obesity, unspecified; J44.9 Chronic obstructive pulmonary disease, unspecified; Z68.43 Body mass index [BMI] 50.0-59.9, adult; Z88.8 Allergy status to other drugs, medicaments and biological substances; Z79.899 Other long term (current) drug therapy
CPT/HCPCS: 36415; 71045; 80053; 82150; 83690; 84484; 85025; 85379; 93005; 99285; A9270

== ENCOUNTER 2022-06-14 06:55 | Emergency (ER) | payer OTHER ==
[2022-06-14] MEDS ORDERED: HYDROmorphone 1 MG/ML Syringe IVPUSH ONE (07:14)
[2022-06-14] MEDS ORDERED: Ondansetron 4 MG/2 ML SDV IV ONE (07:14)
[2022-06-14] MEDS ORDERED: Sodium Chloride 0.9% 1,000 ML IV ONE ×2 (07:14→07:59)
[2022-06-14] MEDS ORDERED: Sodium Chloride 0.9% 10 ML Syringe FLUSH PRN (07:14)
[2022-06-14 07:35] VITALS: BP 158/85; PULSE 79
[2022-06-14 07:50] LABS: ANION GAP 11.4 mEq/L (7-13)
[2022-06-14] MEDS ORDERED: Iopamidol 612 MG/ML 100 ML Bottle IVPUSH ONE (07:54)
[2022-06-14] MEDS ORDERED: Piperacillin/Tazobactam 4.5 GM in Sodium Chloride 0.9% 100 ML IV ONE (08:01)
[2022-06-14] MEDS ORDERED: Iopamidol 612 MG/ML 50 ML SDV IVPUSH ONE (08:44)
[2022-06-14] MEDS ORDERED: methylPREDNISolone Sodium Succinate 125 MG/2 ML SDV IVPUSH ONE (09:21)
== END 2022-06-14 09:47 | disposition home or self-care (01) ==
LOC: DL.ED 06:55
DX: K52.9 Noninfective gastroenteritis and colitis, unspecified (principal); K62.5 Hemorrhage of anus and rectum; J44.9 Chronic obstructive pulmonary disease, unspecified; K21.9 Gastro-esophageal reflux disease without esophagitis; M19.90 Unspecified osteoarthritis, unspecified site; E03.9 Hypothyroidism, unspecified; E66.9 Obesity, unspecified; Z68.43 Body mass index [BMI] 50.0-59.9, adult; Z87.891 Personal history of nicotine dependence; Z88.8 Allergy status to other drugs, medicaments and biological substances; Z79.899 Other long term (current) drug therapy
CPT/HCPCS: 36415; 74177; 80053; 83605; 85025; 86140; 87040; 96361; 96365; 96375; 99284; J1170; J2405; J2543; J2930; J3490; J7030; Q9967

== ENCOUNTER 2022-12-30 11:19 | Emergency (ER) | payer OTHER ==
[2022-12-30] MEDS ORDERED: Sodium Chloride 0.9% 10 ML Syringe FLUSH PRN (11:34)
[2022-12-30] MEDS ORDERED: Iopamidol 612 MG/ML 100 ML Bottle IVPUSH ONE (11:39)
[2022-12-30 11:42] LABS: BASOPHILS PERCENT AUTO 0.2 % (0.0-1.0); EOSINOPHILS PERCENT AUTO 3.4 % (1.0-3.0); HEMATOCRIT 43.1 % (37.0-47.0); HEMOGLOBIN 14.1 g/dL (12.0-16.0); LYMPHOCYTES PERCENT AUTO 11.9 % (20.5-50.1); MEAN CORPUSCULAR HEMOGLOBIN 29.5 pg (27.0-34.0); MEAN CORPUSCULAR HGB CONC 32.7 g/dL (33.0-35.0); MEAN CORPUSCULAR VOLUME 90.2 fL (80-100); MONOCYTES PERCENT AUTO 4.6 % (2-8); NEUTROPHILS PERCENT AUTO 79.9 % (42.2-75.2); PLATELET COUNT,PLT 274 10^3/uL (150-450); RED BLOOD CELL COUNT 4.78 10^6/uL (4.2-5.4); WHITE BLOOD CELL COUNT,WBC 12.4 10^3/uL (5.0-10.0)
[2022-12-30 11:55] LABS: ALBUMIN 3.3 g/dL (3.4-5.0); ANION GAP 12.3 mEq/L (7-13); BILIRUBIN TOTAL 0.3 mg/dL (0.2-1.0); BUN/CREATININE RATIO 7.1 (No establ ref range); CALCIUM 8.4 mg/dL (8.5-10.1); CREATININE 0.99 mg/dL (0.55-1.02); EST CRCL DRUG DOSING (CG) 63.17 mL/min; POTASSIUM,K 3.3 mmol/L (3.5-5.1); PROTEIN TOTAL,TP 7.8 g/dL (6.4-8.2)
[2022-12-30 11:56] LABS: A/G RATIO 0.73
[2022-12-30 11:59] LABS: APPEARANCE,URINE SLIGHTLY CLOUDY (CLEAR); BILIRUBIN,URINE NEGATIVE (NEGATIVE); COLOR,URINE DARK YELLOW (YELLOW); GLUCOSE,URINE NEGATIVE (NEGATIVE); KETONES,URINE NEGATIVE (NEGATIVE); LEUKOCYTE ESTERASE,URINE NEGATIVE (NEGATIVE); NITRITE,URINE NEGATIVE (NEGATIVE); OCCULT BLOOD,URINE NEGATIVE (NEGATIVE); PH,URINE 5.5 (5.0-9.0); PROTEIN,URINE 30 (NEGATIVE); UROBILINOGEN,URINE 0.2 mg/dL (0.2-1.0)
[2022-12-30 12:10] LABS: BACTERIA,URINE MANY /HPF (0-FEW/HPF); EPITHELIAL CELLS,URINE MODERATE /HPF (NOT SEEN); MUCUS,URINE RARE /LPF (NOT SEEN); RBC,URINE NOT SEEN /HPF (0-5)
[2022-12-30] MEDS ORDERED: Sodium Chloride 0.9% 500 ML IV ONE (12:14)
[2022-12-30] MEDS ORDERED: Levofloxacin/Dextrose 5%-Water 500 MG in Premix Bag 1 BAG IV ONE (12:16)
[2022-12-30] MEDS ORDERED: Levofloxacin 250 MG Tab PO ONE (13:35)
[2022-12-30 14:20] VITALS: BP 182/111; PULSE 59
== END 2022-12-30 14:13 | disposition home or self-care (01) ==
LOC: DL.ED 11:19
DX: J18.9 Pneumonia, unspecified organism (principal); N39.0 Urinary tract infection, site not specified; E78.00 Pure hypercholesterolemia, unspecified; J44.9 Chronic obstructive pulmonary disease, unspecified; I10 Essential (primary) hypertension; E03.9 Hypothyroidism, unspecified; E66.9 Obesity, unspecified; F17.210 Nicotine dependence, cigarettes, uncomplicated; Z68.43 Body mass index [BMI] 50.0-59.9, adult; Z86.16 Personal history of COVID-19; Z79.899 Other long term (current) drug therapy
CPT/HCPCS: 36415; 71260; 74160; 80053; 81001; 84484; 85025; 93005; 96365; 99285; A9270; J1956; J7030; Q9967

== ENCOUNTER 2024-06-20 15:34 | Emergency (ER) | payer OTHER ==
[2024-06-20] MEDS: Ibuprofen 600 MG Tab PO ONE (15:49)
[2024-06-20] MEDS: Acetaminophen 500 MG Tab PO ONE (15:49)
[2024-06-20 17:53] VITALS: BP 139/78; PULSE 85
== END 2024-06-20 17:48 ==
LOC: DL.ED 15:34
DX: S89.92XA Unspecified injury of left lower leg, initial encounter (principal); I10 Essential (primary) hypertension; K21.9 Gastro-esophageal reflux disease without esophagitis; E03.9 Hypothyroidism, unspecified; E66.9 Obesity, unspecified; Z86.16 Personal history of COVID-19; Z90.49 Acquired absence of other specified parts of digestive tract; Z79.899 Other long term (current) drug therapy; Z79.891 Long term (current) use of opiate analgesic; Z79.890 Hormone replacement therapy; Z88.8 Allergy status to other drugs, medicaments and biological substances; Z68.43 Body mass index [BMI] 50.0-59.9, adult; W19.XXXA Unspecified fall, initial encounter
CPT/HCPCS: 73562; 99283; A9270

== ENCOUNTER 2024-07-27 12:16 | Emergency (ER) | payer OTHER ==
[2024-07-27 13:02] LABS: BASOPHILS PERCENT AUTO 0.1 % (0.0-1.0); EOSINOPHILS PERCENT AUTO 0.4 % (1.0-3.0); HEMATOCRIT 40.8 % (37.0-47.0); HEMOGLOBIN 12.9 g/dL (12.0-16.0); LYMPHOCYTES PERCENT AUTO 12.5 % (20.5-50.1); MEAN CORPUSCULAR HGB CONC 31.6 g/dL (33.0-35.0); MEAN CORPUSCULAR VOLUME 91.7 fL (80-100); MONOCYTES PERCENT AUTO 6.3 % (2-8); NEUTROPHILS PERCENT AUTO 80.7 % (42.2-75.2); PLATELET COUNT,PLT 252 10^3/uL (150-450); RED BLOOD CELL COUNT 4.45 10^6/uL (4.2-5.4); WHITE BLOOD CELL COUNT,WBC 10.6 10^3/uL (5.0-10.0)
[2024-07-27 13:19] LABS: PROTHROMBIN TIME 10.2 SEC (9.0-12.0); PTT,PARTIAL THROMBOPLSTIN TIME 27.3 SEC (22.0-34.0)
[2024-07-27 13:23] LABS: A/G RATIO 0.64; ANION GAP 9.9 mEq/L (7-13); BILIRUBIN TOTAL 0.2 mg/dL (0.2-1.0); BUN/CREATININE RATIO 10.1 (No establ ref range); CALCIUM 8.9 mg/dL (8.5-10.1); CREATININE 1.09 mg/dL (0.55-1.02); EST CRCL DRUG DOSING (CG) 56.04 mL/min; POTASSIUM,K 2.9 mmol/L (3.5-5.1); PROTEIN TOTAL,TP 7.7 g/dL (6.4-8.2)
[2024-07-27] MEDS: Take Home: predniSONE 20 MG, 4 Tab Pack PO ONE (13:57)
[2024-07-27 13:59] VITALS: BP 126/82; PULSE 86
[2024-07-27] MEDS: Take Home: Azithromycin 250 MG, 2 Tab Pack PO ONE (14:00)
[2024-07-27] MEDS: Azithromycin 250 MG Tab PO ONE (14:02)
[2024-07-27] MEDS: Potassium Chloride 10 MEQ Tab.ER PO ONE (14:02)
[2024-07-27] MEDS: predniSONE 20 MG Tab PO ONE (14:03)
== END 2024-07-27 14:13 | disposition home or self-care (01) ==
LOC: DL.ED 12:16
DX: J44.1 Chronic obstructive pulmonary disease with (acute) exacerbation (principal); I10 Essential (primary) hypertension; E78.00 Pure hypercholesterolemia, unspecified; J21.9 Acute bronchiolitis, unspecified; E03.9 Hypothyroidism, unspecified; E66.9 Obesity, unspecified; Z86.16 Personal history of COVID-19; Z79.899 Other long term (current) drug therapy; Z79.84 Long term (current) use of oral hypoglycemic drugs; Z88.8 Allergy status to other drugs, medicaments and biological substances
CPT/HCPCS: 36415; 71045; 80053; 83880; 84484; 85025; 85610; 85730; 93005; 99285; A9270; J7512

== ENCOUNTER 2024-08-07 16:12 | Emergency (ER) | payer OTHER ==
[2024-08-07] MEDS ORDERED: Naloxone 2 MG/2 ML Syringe IVPUSH PRN (16:30)
[2024-08-07 17:12] LABS: BASOPHILS PERCENT AUTO 0.1 % (0.0-1.0); EOSINOPHILS PERCENT AUTO 0.6 % (1.0-3.0); HEMATOCRIT 38.7 % (37.0-47.0); HEMOGLOBIN 12.3 g/dL (12.0-16.0); LYMPHOCYTES PERCENT AUTO 14.5 % (20.5-50.1); MEAN CORPUSCULAR HEMOGLOBIN 28.6 pg (27.0-34.0); MEAN CORPUSCULAR HGB CONC 31.8 g/dL (33.0-35.0); MONOCYTES PERCENT AUTO 12.1 % (2-8); NEUTROPHILS PERCENT AUTO 72.7 % (42.2-75.2); PLATELET COUNT,PLT 205 10^3/uL (150-450); WHITE BLOOD CELL COUNT,WBC 6.7 10^3/uL (5.0-10.0)
[2024-08-07] MEDS: Iopamidol 612 MG/ML 100 ML Bottle IVPUSH ONE (17:28)
[2024-08-07 17:40] LABS: ALBUMIN 2.7 g/dL (3.4-5.0); ANION GAP 14.2 mEq/L (7-13); BILIRUBIN TOTAL 0.3 mg/dL (0.2-1.0); BUN/CREATININE RATIO 13.3 (No establ ref range); CALCIUM 8.3 mg/dL (8.5-10.1); CREATININE 1.2 mg/dL (0.55-1.02); EST CRCL DRUG DOSING (CG) 50.9 mL/min; POTASSIUM,K 3.2 mmol/L (3.5-5.1); PROTEIN TOTAL,TP 7.3 g/dL (6.4-8.2)
[2024-08-07] MEDS: HYDROmorphone 1 MG/ML Syringe IVPUSH ONE (17:41)
[2024-08-07 17:45] LABS: A/G RATIO 0.59
[2024-08-07 18:38] VITALS: BP 119/69; PULSE 72
== END 2024-08-07 18:46 | disposition home or self-care (01) ==
LOC: DL.ED 16:12
DX: R10.33 Periumbilical pain (principal); I10 Essential (primary) hypertension; J44.9 Chronic obstructive pulmonary disease, unspecified; K21.9 Gastro-esophageal reflux disease without esophagitis; E03.9 Hypothyroidism, unspecified; E66.9 Obesity, unspecified; Z68.43 Body mass index [BMI] 50.0-59.9, adult; Z86.16 Personal history of COVID-19; Z90.49 Acquired absence of other specified parts of digestive tract; Z88.8 Allergy status to other drugs, medicaments and biological substances; Z79.51 Long term (current) use of inhaled steroids; Z79.890 Hormone replacement therapy; Z79.899 Other long term (current) drug therapy
CPT/HCPCS: 36415; 71275; 74174; 80053; 85025; 96374; 99284; J1171; Q9967

== ENCOUNTER 2025-03-03 09:42 | Emergency (ER) | payer OTHER ==
[2025-03-03 10:01] LABS: BASOPHILS PERCENT AUTO 0.1 % (0.0-1.0); EOSINOPHILS PERCENT AUTO 0.0 % (1.0-3.0); LYMPHOCYTES PERCENT AUTO 3.7 % (20.5-50.1); MONOCYTES PERCENT AUTO 3.0 % (2-8); NEUTROPHILS PERCENT AUTO 93.2 % (42.2-75.2); PLATELET COUNT,PLT 291 10^3/uL (150-450); RED BLOOD CELL COUNT 4.25 10^6/uL (4.2-5.4); WHITE BLOOD CELL COUNT,WBC 23.5 10^3/uL (5.0-10.0)
[2025-03-03] MEDS: Lactated Ringers 1,000 ML IV ONE (10:06)
[2025-03-03] MEDS: Sodium Chloride 0.9% 10 ML Syringe FLUSH PRN (10:07)
[2025-03-03 10:18] LABS: ALANINE AMINOTRANSFERASE,ALT 22.0 U/L (14-59); ASPARTATE AMNIOTRANSFERASE,AST 23.0 U/L (15-37); BILIRUBIN TOTAL 0.2 mg/dL (0.2-1.0); BLOOD UREA NITROGEN,BUN 28.0 mg/dL (7-18); CARBON DIOXIDE,CO2 29.0 mmol/L (21-32); CHLORIDE,CL 100.0 mmol/L (98-107); CREATININE 2.19 mg/dL (0.55-1.02); EST CRCL DRUG DOSING (CG) 27.89 mL/min; GLUCOSE RANDOM 170.0 mg/dL (70-99); POTASSIUM,K 3.5 mmol/L (3.5-5.1); PROTEIN TOTAL,TP 7.0 g/dL (6.4-8.2); SODIUM,NA 139.0 mmol/L (136-145)
[2025-03-03 10:19] LABS: A/G RATIO 0.63; ESTIMATED GFR 26.0 mL/min (>=60)
[2025-03-03 11:22] VITALS: PULSE 93
[2025-03-03 12:40] VITALS: BP 108/63
== END 2025-03-03 12:30 | disposition home or self-care (01) ==
LOC: DL.ED 09:42
DX: K52.9 Noninfective gastroenteritis and colitis, unspecified (principal); I10 Essential (primary) hypertension; E03.9 Hypothyroidism, unspecified; E78.00 Pure hypercholesterolemia, unspecified; Z88.8 Allergy status to other drugs, medicaments and biological substances; Z79.890 Hormone replacement therapy; Z79.899 Other long term (current) drug therapy; Z86.16 Personal history of COVID-19
CPT/HCPCS: 36415; 74176; 80053; 83690; 85025; 86140; 93005; 93010; 96360; 99284; 99284-25; J7120